=== PATIENT | female | born 1970 | race African-American/Black ===

== ENCOUNTER → 2016-11-27 | Outpatient (CLI) | payer BC ==
[2016-07-16 20:53] VITALS: BP 142/81
--- NOTE | 2016-11-27 16:08 | RAD ---
INDICATION:Left knee mass COMPARISON: None. FINDINGS: Focused ultrasound images are obtained of the left popliteal fossa. No definite fluid collection or solid mass is seen within the region. IMPRESSION: No definite fluid collection or solid mass is seen in the popliteal fossa.
== END | disposition home or self-care (01) ==
LOC: US 15:11
PROVIDERS: ATTEND Surgery
DX: M25.862 Other specified joint disorders, left knee (principal)
CPT/HCPCS: 76881

== ENCOUNTER → 2016-12-23 | Outpatient (CLI) | payer BC ==
[2016-07-16 20:53] VITALS: BP 142/81
--- NOTE | 2016-12-23 08:42 | KCIC ---
PROCEDURE MRI left knee without contrast. HISTORY Left knee pain and swelling. TECHNIQUE MRI of the left knee was performed without intravenous contrast. FINDINGS The anterior cruciate ligament and posterior cruciate ligament are intact. The medial collateral ligament and lateral collateral ligament complex are intact. The patellar retinacula and extensor mechanism are intact. The medial and lateral menisci are intact. The articular cartilage demonstrates no focal defects. There is only trace joint fluid. Some fluid extends into the gastrocnemius-semimembranosus bursa. There is no clear edema about the patella to suggest a friction syndrome. There is some red marrow reconversion within the distal femur. IMPRESSION - No internal derangement is identified. - A small amount of fluid within the gastrocnemius-semimembranosus bursa may be incidental or reflect mild bursitis. Electronically signed by: Jerry Walden (Dec 23, 2016 08:41:12)
== END | disposition home or self-care (01) ==
LOC: KCIC MRI 07:51
PROVIDERS: ATTEND Orthopaedic Surgery Sports Medicine
DX: M25.562 Pain in left knee (principal)
CPT/HCPCS: 73721

== ENCOUNTER → 2018-12-06 | Outpatient (CLI) | payer BC ==
[2016-07-16 20:53] VITALS: BP 142/81
--- NOTE | 2018-12-06 10:44 | RAD ---
DATE: December 06, 2018 EXAM: DIGITAL DIAGNOSTIC BILATERAL, BREAST LEFT SONOGRAM HISTORY: History of palpable left breast lumps; one discovered by the patient inferiorly and slightly laterally and one discovered by the patient's physician within the upper aspect of the left breast from 11:00 to 1:00 position. COMPARISON: 2016 and 2017 Digital 2-D mammographic views of both breasts in the CC and MLO projections were performed. This study was interpreted with the benefit of Computerized Aided Detection (CAD). FINDINGS: Breast Density: FATTY The breast parenchyma is primarily fatty replaced. Breast parenchyma level density A.. There are no dominant suspicious masses, suspicious microcalcifications or evidence of architectural distortion. A metallic BB is placed on the palpable lump indicated by the patient within the inferior lateral aspect of the left breast. No focal mammographic abnormality is seen here. LEFT BREAST SONOGRAPHY: High-resolution sonography of the 11 o'clock to 1:00 position of the left breast in the area of the palpable lump discovered by the patient's physician was performed. No focal sonographic abnormality was identified. High-resolution sonography of the palpable lump of the 5:00 position of the left breast as indicated by the patient was performed. No focal sonographic abnormality was seen here. IMPRESSION: No mammographic indicators for malignancy. No focal mammographic or sonographic abnormality of the left breast is seen to correspond to the palpable lumps. With regard to any palpable lump, follow-up should be clinical therefore. BI-RADS CATEGORY: 1 NEGATIVE RECOMMENDED FOLLOW-UP: 12M 12 MONTH FOLLOW-UP PQRS compliance statement: Patient information was entered into a reminder system with a target due date December 07, 2019 for the next mammogram. Mammography is a sensitive method for finding small breast cancers, but it does not detect them all and is not a substitute for careful clinical examination. A negative mammogram does not negate a clinically suspicious finding and should not result in delay in biopsying a clinically suspicious abnormality. "Our facility is accredited by the [employer] Mammography Program." The patient's breast density may affect the ability of mammography to detect breast cancer. There are 4 categories of breast density, A, B, C and D. Breast density A means that most of the breast tissue is replaced with adipose tissue and therefore is not dense. Breast density B means that the breast tissue is mildly dense and scattered. Breast density C means that the breast tissue is heterogeneously dense. Breast density D means that the breast tissue is very dense. Breast densities especially C and D may decrease the sensitivity of mammography to detect breast cancer. Therefore, the patient may benefit from 3-D breast mammography (3D breast tomography) as a part of their screening mammogram. Insurance may or may not pay for this additional imaging. The patient's breast density based on today's mammogram is category A.
== END | disposition home or self-care (01) ==
LOC: MAMMO 09:22
PROVIDERS: ATTEND Family Medicine
DX: N63.22 Unspecified lump in the left breast, upper inner quadrant (principal)
CPT/HCPCS: 76641; 77066